=== PATIENT | male | born 1990 | race Hispanic/Latino ===

== ENCOUNTER 2019-10-06 01:13 | Emergency (ER) | payer OTHER ==
[2019-10-06] MEDS ORDERED: KETOROLAC TROMETHAMINE 60 MG/2 ML VIAL ONE (01:23)
== END 2019-10-06 01:43 | disposition home or self-care (01) ==
LOC: EDH 01:13
DX: K02.9 Dental caries, unspecified (principal)
CPT/HCPCS: 96372; 99283; J1885